=== PATIENT | male | born 1940 | race Caucasian/White ===

== ENCOUNTER → 2016-10-20 | Outpatient (CLI) | payer MEDICARE, OTHER ==
[~2016-10-20] MED LIST: ACET-2321 PO; ASPI-917 PO; ATOR10TA64 PO; GLUCOSAMINE 1,1 EACH PO; LEVO75TA10 PO; POLY17PO18 PO; TRAM50TA53 PO
--- NOTE | 2016-10-21 08:52 | DI ---
Indication: ITS.REASON: R22.41 Localized swelling, mass and lump, right lower limb PROCEDURE: US VENOUS DUPLEX, LOWER EXT RT: Encounter: Initial Comparison: None Technique: Color Doppler duplex and grayscale sonographic imaging of the right lower extremity was performed. Findings: There is no evidence for acute deep venous thrombosis in the right thigh. Specifically, serial graded compression was performed from the inguinal ligament to the popliteal bifurcation, on the right thigh, demonstrating appropriate compressibility of the deep venous system. In addition, color and pulsed Doppler demonstrate appropriate spontaneous flow, variation with respiration, and augmentation with calf compression. At the ankle, normal flow is identified in the posterior tibial veins; these vessels are also normal in caliber. Impression: No evidence of acute DVT in the right lower limb. The above report was called to the ordering clinician by the technologist at the completion of exam at 1645 hours .
== END ==
LOC: IMA 16:18
PROVIDERS: ATTEND Physician Assistant Medical
DX: R22.41 Localized swelling, mass and lump, right lower limb (principal); Z86.718 Personal history of other venous thrombosis and embolism